=== PATIENT | female | born 1990 | race Caucasian/White ===

== ENCOUNTER 2022-05-26 03:05 | Emergency (ER) | payer SELFPAY ==
[~2022-05-26] VITALS: Ht 160 cm; Wt 100.0 kg
[2022-05-26 03:45] LABS: URINE BILIRUBIN - DIPSTICK NEGATIVE (NEGATIVE); URINE BLOOD DIPSTICK NEGATIVE (NEGATIVE); URINE COLOR YELLOW; URINE GLUCOSE - DIPSTICK NEGATIVE (NEGATIVE); URINE KETONE NEGATIVE (NEGATIVE); URINE LEUK ESTERASE NEGATIVE (NEGATIVE); URINE PROTEIN - DIPSTICK NEGATIVE (NEG-TRACE); URINE UROBILINOGEN - DIPSTICK 0.2 E.U./dL (0.2)
[2022-05-26 03:49] LABS: URINE NITRITE - DIPSTICK NEGATIVE (Negative)
[2022-05-26] MEDS ORDERED: PREDNISONE20 MG PO (05:27)
[2022-05-26] MEDS ORDERED: TUSSI-PRE2 PO (05:27)
[2022-05-26] MEDS ORDERED: ZITHROMAX Z-PA250 MG PO (05:27)
[2022-05-26 05:36] VITALS: BP 130/85
== END 2022-05-26 05:54 | disposition home or self-care (01) | DRG 177 ==
LOC: ED 03:05
PROVIDERS: Internal Medicine
DX: U07.1 COVID-19 (principal); J12.82 Pneumonia due to coronavirus disease 2019